=== PATIENT | female | born 2005 | race Caucasian/White ===

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

== ENCOUNTER 2024-06-09 05:40 | Emergency (ER) | payer OTHER, BC ==
[~2024-06-09] VITALS: Ht 167.6 cm; Wt 65.8 kg
[~2024-06-09 05:40] MED LIST changes: +BIRTH CONTROL
[2024-06-09 05:47] VITALS: BP 147/99
[2024-06-10 17:24] LABS: HEPATITIS B SURFACE ANTIBODY >1000.00 IU/L
== END 2024-06-09 06:20 ==
LOC: ER 05:40
PROVIDERS: Emergency Medicine
DX: Z77.21 Contact with and (suspected) exposure to potentially hazardous body fluids (principal)
CPT/HCPCS: 36415; 84460; 99282